=== PATIENT | male | born 1970 | race Hispanic/Latino ===

== ENCOUNTER 2018-11-28 17:23 | Emergency (ER) | payer OTHER ==
[2018-11-28 17:31] VITALS: RESP 18
[2018-11-28] MEDS ORDERED: Sodium Chloride 0.9% 1,000 ML IV STA (18:18)
[2018-11-28 18:51] LABS: BASO % 0.2 % (0.0-2.0); EOS # 0.1 K/uL (0.0-0.7); EOS % 1.1 % (0.0-4.0); HEMOGLOBIN 14.1 g/dL (12.0-18.0); LYMPH # 1.1 K/uL (1.0-4.3); LYMPH % 8.5 % (20.0-40.0); MEAN CELL VOLUME 101.4 fl (80.0-94.0); MEAN CORPUSCULAR HEMOGLOBIN 33.9 pg (27.0-31.0); MEAN CORPUSCULAR HGB CONC 33.4 g/dL (33.0-37.0); MONO # 1.1 K/uL (0.0-0.8); MONO % 8.3 % (0.0-10.0); NEUT # 10.3 K/uL (1.8-7.0); NEUT % 81.9 % (50.0-75.0); PLATELET COUNT 237 K/uL (130-400); RBC 4.16 Mil/uL (4.40-5.90); RED CELL DISTRIBUTION WIDTH 13.2 % (11.5-14.5); WHITE BLOOD COUNT 12.6 K/uL (4.8-10.8)
[2018-11-28 19:00] LABS: ALB/GLOB RATIO 1.2 (1.0-2.1); ALBUMIN 4.3 g/dL (3.5-5.0); GFR NON-AFRICAN AMERICAN > 60
[2018-11-28 19:02] LABS: VENOUS BLOOD GAS BASE EXCESS 4.3 mmol/L (0.0-2.0); VENOUS BLOOD GAS PCO2 47 mmHg (40-60); VENOUS BLOOD GAS PO2 19 mm/Hg (30-55); VENOUS BLOOD PH 7.41 (7.32-7.43)
[2018-11-28 19:09] LABS: ALT/SGPT 28 U/L (21-72); AST/SGOT 28 U/L (17-59); BLOOD UREA NITROGEN 12 mg/dl (9-20); CALCIUM 9.2 mg/dL (8.4-10.2); LIPASE 24 U/L (23-300)
[2018-11-28 19:16] LABS: SQUAMOUS EPITHIAL < 1 /hpf (0-5); URINE BACTERIA RARE (<OCC); URINE BILIRUBIN NEGATIVE (NEGATIVE); URINE BLOOD NEGATIVE (NEGATIVE); URINE CLARITY SLIGHTY-CLOUDY (Clear); URINE COLOR YELLOW (YELLOW); URINE GLUCOSE (UA) NEG (NEGATIVE); URINE LEUKOCYTE ESTERASE NEG Leu/uL (Negative); URINE PROTEIN 30 mg/dL (NEGATIVE)
[2018-11-28 19:41] LABS: BANDS 3 % (0-2); EOSINOPHIL 2 % (0-7); LYMPHOCYTE 12 % (20-50); MONOCYTE 10 % (0-10); NEUTROPHIL 73 % (42-75); PLATELET ESTIMATE NORMAL (NORMAL); TOTAL CELLS COUNTED 100
[2018-11-28] MEDS ORDERED: Azithromycin 500 MG in Sodium Chloride 0.9% 250 ML IVPB STA (20:14)
--- NOTE | 2018-11-28 20:35 | ED PDOC ---
- Laboratory Results Result Diagrams: 11/28/18 18:36 11/28/18 18:36 Lab Results: pO2 19 mm/Hg (30-55) L 11/28/18 18:50 VBG pH 7.41 (7.32-7.43) 11/28/18 18:50 VBG pCO2 47 mmHg (40-60) 11/28/18 18:50 VBG HCO3 26.5 mmol/L 11/28/18 18:50 VBG Total CO2 31.2 mmol/L (22-28) H 11/28/18 18:50 VBG O2 Sat (Calc) 42.5 % (40-65) 11/28/18 18:50 VBG Base Excess 4.3 mmol/L (0.0-2.0) H 11/28/18 18:50 VBG Potassium 3.7 mmol/L (3.6-5.2) 11/28/18 18:50 Sodium 131.0 mmol/L (132-148) L 11/28/18 18:50 Chloride 97.0 mmol/L (98-107) L 11/28/18 18:50 Glucose 100 mg/dL (75-110) 11/28/18 18:50 Lactate 0.9 mmol/L (0.7-2.1) 11/28/18 18:50 FiO2 21.0 % 11/28/18 18:50 Troponin I < 0.0120 ng/mL (0.00-0.120) 11/28/18 18:36 Total Bilirubin 1.6 mg/dl (0.2-1.3) H 11/28/18 18:36 AST 28 U/L (17-59) 11/28/18 18:36 ALT 28 U/L (21-72) 11/28/18 18:36 Alkaline Phosphatase 61 U/L (38-126) 11/28/18 18:36 Total Protein 7.9 G/DL (6.3-8.2) 11/28/18 18:36 Albumin 4.3 g/dL (3.5-5.0) 11/28/18 18:36 Globulin 3.6 gm/dL (2.2-3.9) 11/28/18 18:36 Albumin/Globulin Ratio 1.2 (1.0-2.1) 11/28/18 18:36 Lipase 24 U/L (23-300) 11/28/18 18:36 Urine Color Yellow (YELLOW) 11/28/18 18:36 Urine Clarity Slighty-cloudy (Clear) 11/28/18 18:36 Urine pH 7.0 (5.0-8.0) 11/28/18 18:36 Ur Specific [place] 1.016 (1.003-1.030) 11/28/18 18:36 Urine Protein 30 mg/dL (NEGATIVE) 11/28/18 18:36 Urine Glucose (UA) Neg mg/dL (NEGATIVE) 11/28/18 18:36 Urine Ketones 20 mg/dL (NEGATIVE) 11/28/18 18:36 Urine Blood Negative (NEGATIVE) 11/28/18 18:36 Urine Nitrate Negative (NEGATIVE) 11/28/18 18:36 Urine Bilirubin Negative (NEGATIVE) 11/28/18 18:36 Urine Urobilinogen 2.0 mg/dL (0.2-1.0) 11/28/18 18:36 Ur Leukocyte Esterase Neg Sujatha/uL (Negative) 11/28/18 18:36 Urine RBC (Auto) 3 /hpf (0-3) 11/28/18 18:36 Urine Microscopic WBC 1 /hpf (0-5) 11/28/18 18:36 Ur Squamous Epith Cells < 1 /hpf (0-5) 11/28/18 18:36 Urine Bacteria Rare (<OCC) 11/28/18 18:36 - ECG O2 Sat by Pulse Oximetry: 97 Pulse Ox Interpretation: Normal Medical Decision Making Medical Decision MakinPM Patient endorsed to me by Dr. Holt pending workup and re-eval 8PM --Patient re-evaluated at bedside, very well appearing, HR 98, 99% O2 on room air --Advised patient he likely has a pneumonia on the L side, explained lab results as well --Patient suitable for outpatient antibiotics, will initiate treatment in ER with IV azithromycin and ceftriaxone --Patient states he has no PMD to followup with, will give [employer] resources --Patient is stable, in good condition upon discharge, advised of return precautions (worsening fever, chills, cough despite medication, any concerning symptoms, etc.) Disposition - Clinical Impression Clinical Impression: Pneumonia - POA Present On Arrival: None - Disposition Referrals: [facility] [Outside] Disposition: Routine/Home Disposition Time: 20:35 Condition: IMPROVED Prescriptions: Azithromycin 250 mg PO DAILY #4 tablet Ibuprofen [Motrin Tab] 600 mg PO Q6 #30 tab Instructions: Pneumonia in Adults Forms: [facility] ([place])
--- NOTE | 2018-11-28 20:51 | ED PDOC ---
HPI: Male Pain Time Seen by Provider: 11/28/18 18:08 Chief Complaint (Nursing): Male Genitourinary Chief Complaint (Provider): Male Genitourinary History Per: Patient History/Exam Limitations: no limitations Current Symptoms Are (Timing): Still Present Additional Complaint(s): 48 y/o male with no significant PMHx referred here from Urgent Care for evaluation of tachycardia. Patient reports of developing left lower rib pain yesterday. Patient notes of pain has become more severe and is radiating to the back, worsening with coughing and position. Patient notes of having fever and chills today. Patient reports that while at the Urgent Care, he noticed a red bumpy rash on his stomach. Of note, patient states his boss is also sick with similar symptoms and just returned from [place]. Denies cough and vomiting. PMD: none provided Vaccinations are up to date including Titer levels done for employment that proved immunization. Past Medical History Reviewed: Historical Data, Nursing Documentation, Vital Signs Vital Signs: Last Vital Signs Temp 100.2 F H 11/28/18 18:43 Pulse 121 H 11/28/18 17:30 Resp 18 11/28/18 17:30 BP 156/92 H 11/28/18 17:30 Pulse Ox 97 11/28/18 20:35 - Surgical History Surgical History: No Surg Hx - Family History Family History: States: Unknown Family Hx - Home Medications Home Medications: Ambulatory Orders Medication Instructions Recorded Azithromycin 250 mg PO DAILY #4 tablet 11/28/18 Ibuprofen [Motrin Tab] 600 mg PO Q6 #30 tab 11/28/18 - Allergies Allergies/Adverse Reactions: Allergies Allergy/AdvReac Type Severity Reaction Status Date / Time codeine Allergy VOMITING Verified 11/28/18 17:34 Review of Systems ROS Statement: Except As Marked, All Systems Reviewed And Found Negative Constitutional: Positive for: Fever, Chills Musculoskeletal: Positive for: Back Pain, Other (rib pain) Skin: Positive for: Rash Physical Exam - Reviewed Nursing Documentation Reviewed: Yes Vital Signs Reviewed: Yes - Physical Exam Appears: Positive for: No Acute Distress (dehydrated and ill appearing. in no cardio or respiratory distress) Head Exam: Positive for: ATRAUMATIC, NORMOCEPHALIC Skin: Positive for: Rash (raised palpable erythematous rash with no papules. Not on erythematous base. No vesicles, confluence and bleeding. Rash limited to torso) Eye Exam: Positive for: Normal appearance Neck: Positive for: Normal, Painless ROM Cardiovascular/Chest: Positive for: Regular Rate, Rhythm. Negative for: Murmur Respiratory: Positive for: Normal Breath Sounds. Negative for: Respiratory Distress (r) Gastrointestinal/Abdominal: Positive for: Normal Exam, Soft. Negative for: Tenderness Extremity: Positive for: Normal ROM. Negative for: Deformity Neurologic/Psych: Positive for: Alert, Oriented. Negative for: Motor/Sensory Deficits - Laboratory Results Result Diagrams: 11/28/18 18:36 11/28/18 18:36 Lab Results: pO2 19 mm/Hg (30-55) L 11/28/18 18:50 VBG pH 7.41 (7.32-7.43) 11/28/18 18:50 VBG pCO2 47 mmHg (40-60) 11/28/18 18:50 VBG HCO3 26.5 mmol/L 11/28/18 18:50 VBG Total CO2 31.2 mmol/L (22-28) H 11/28/18 18:50 VBG O2 Sat (Calc) 42.5 % (40-65) 11/28/18 18:50 VBG Base Excess 4.3 mmol/L (0.0-2.0) H 11/28/18 18:50 VBG Potassium 3.7 mmol/L (3.6-5.2) 11/28/18 18:50 Sodium 131.0 mmol/L (132-148) L 11/28/18 18:50 Chloride 97.0 mmol/L (98-107) L 11/28/18 18:50 Glucose 100 mg/dL (75-110) 11/28/18 18:50 Lactate 0.9 mmol/L (0.7-2.1) 11/28/18 18:50 FiO2 21.0 % 11/28/18 18:50 Troponin I < 0.0120 ng/mL (0.00-0.120) 11/28/18 18:36 Total Bilirubin 1.6 mg/dl (0.2-1.3) H 11/28/18 18:36 AST 28 U/L (17-59) 11/28/18 18:36 ALT 28 U/L (21-72) 11/28/18 18:36 Alkaline Phosphatase 61 U/L (38-126) 11/28/18 18:36 Total Protein 7.9 G/DL (6.3-8.2) 11/28/18 18:36 Albumin 4.3 g/dL (3.5-5.0) 11/28/18 18:36 Globulin 3.6 gm/dL (2.2-3.9) 11/28/18 18:36 Albumin/Globulin Ratio 1.2 (1.0-2.1) 11/28/18 18:36 Lipase 24 U/L (23-300) 11/28/18 18:36 Urine Color Yellow (YELLOW) 11/28/18 18:36 Urine Clarity Slighty-cloudy (Clear) 11/28/18 18:36 Urine pH 7.0 (5.0-8.0) 11/28/18 18:36 Ur Specific [place] 1.016 (1.003-1.030) 11/28/18 18:36 Urine Protein 30 mg/dL (NEGATIVE) 11/28/18 18:36 Urine Glucose (UA) Neg mg/dL (NEGATIVE) 11/28/18 18:36 Urine Ketones 20 mg/dL (NEGATIVE) 11/28/18 18:36 Urine Blood Negative (NEGATIVE) 11/28/18 18:36 Urine Nitrate Negative (NEGATIVE) 11/28/18 18:36 Urine Bilirubin Negative (NEGATIVE) 11/28/18 18:36 Urine Urobilinogen 2.0 mg/dL (0.2-1.0) 11/28/18 18:36 Ur Leukocyte Esterase Neg Sujatha/uL (Negative) 11/28/18 18:36 Urine RBC (Auto) 3 /hpf (0-3) 11/28/18 18:36 Urine Microscopic WBC 1 /hpf (0-5) 11/28/18 18:36 Ur Squamous Epith Cells < 1 /hpf (0-5) 11/28/18 18:36 Urine Bacteria Rare (<OCC) 11/28/18 18:36 - ECG O2 Sat by Pulse Oximetry: 97 (RA) Pulse Ox Interpretation: Normal Medical Decision Making Medical Decision Making: Time: 1809 A/P: Workup for febrile illness now with rash and lower left chest pain and back pain. -- Rule out pulmonary vs renal ideology -- Labs with UA -- IV fluids, toradol for pain. -- Consider imaging if labs are abnormal and if pain has not improved with fluids. -- VBG -- CMP -- Lipase -- Troponin I -- CBC with Differentials -- CXR Two Views -- Sodium Chloride IV 1000 mls/hr -- Toradol 30 mg IVP -- Tylenol 650 mg PO -- Blood Culture -- Urine culture -- Urinalysis Time: 1900 -- Patient signed out to Dr. Johnston, pending ER workup, re-evaluation and final ER disposition. Scribe Attestation: Documented by Agustin Zhao, acting as a scribe for Delphine Prater MD. Provider Scribe Attestation: All medical record entries made by the Scribe were at my direction and personally dictated by me. I have reviewed the chart and agree that the record accurately reflects my personal performance of the history, physical exam, medical decision making, and the department course for this patient. I have also personally directed, reviewed, and agree with the discharge instructions and disposition. Disposition - Clinical Impression Clinical Impression: Pneumonia - Patient ED Disposition Is Patient to be Admitted: Transfer of Care Counseled Patient/Family Regarding: Studies Performed, Diagnosis, Need For Followup, Rx Given - Disposition Referrals: [facility] [Outside] Disposition: Routine/Home Disposition Time: 19:00 Condition: FAIR Prescriptions: Azithromycin 250 mg PO DAILY #4 tablet Ibuprofen [Motrin Tab] 600 mg PO Q6 #30 tab Instructions: Pneumonia in Adults Forms: [facility] ([place]) Patient Signed Over To: Herb oJhnston Present On Arrival: None
[2018-11-28] MEDS ORDERED: cefTRIAXone 2 GM in Sodium Chloride 0.9% 100 ML IVPB STA (21:13)
[2018-11-28] MEDS ORDERED: Azithromycin 500 MG IV IVPB ONE (21:15)
[2018-11-28 21:23] VITALS: TEMP 98.2; O2SAT 99
[2018-11-28 23:34] VITALS: BP 110/71; PULSE 89
[2018-11-29] MEDS ORDERED: cefTRIAXone 2 GM in Sodium Chloride 0.9% 100 ML IVPB SCH (09:00)
--- NOTE | 2018-11-29 10:50 | RAD ---
Date of service: 11/28/2018 HISTORY: cough COMPARISON: No prior. TECHNIQUE: Chest PA and lateral FINDINGS: LUNGS: Borderline left perihilar pneumonia seen in the frontal projection only. Clinically correlate. Further remaining lung maldonado are clear. PLEURA: No significant pleural effusion identified. No pneumothorax apparent. CARDIOVASCULAR: No aortic atherosclerotic calcification present. Normal cardiac size. No pulmonary vascular congestion. OSSEOUS STRUCTURES: No significant abnormalities. VISUALIZED UPPER ABDOMEN: Normal. OTHER FINDINGS: None. IMPRESSION: Potential early infiltrate left perihilar region though this is seen only in the frontal projection. Clinically correlate further. Remainder the examination appears unremarkable.
== END 2018-11-28 20:35 | disposition home or self-care (01) ==
LOC: H.ER 17:23
DX: J18.9 Pneumonia, unspecified organism (principal)
CPT/HCPCS: 71046; 80053; 81003; 82803; 83690; 84484; 85025; 87040; 87086; 96361; 96365; 96367; 96375; 99284; J0456; J0696; J1885; J7030